=== PATIENT | female | born 1965 | race Caucasian/White ===

== ENCOUNTER → 2021-05-25 | Day surgery (SDC) | payer OTHER | END | disposition home or self-care (01) | LOC: FAS 06:02 | DX: M24.612 Ankylosis, left shoulder (principal); M75.02 Adhesive capsulitis of left shoulder; G89.18 Other acute postprocedural pain; E78.00 Pure hypercholesterolemia, unspecified; J43.9 Emphysema, unspecified; Z88.8 Allergy status to other drugs, medicaments and biological substances; Z79.1 Long term (current) use of non-steroidal anti-inflammatories (NSAID); Z79.899 Other long term (current) drug therapy ==